=== PATIENT | male | born 2000 | race Caucasian/White ===

== ENCOUNTER 2020-05-19 22:58 | Emergency (ER) | payer OTHER, SELFPAY ==
[2020-05-19 23:07] VITALS: BP 129/71; PULSE 118; RESP 16; TEMP 38.4; O2SAT 96; BMI 29.2
[2020-05-19 23:42] LABS: Rapid Strep A Test Positive (Negative)
--- NOTE | 2020-05-19 23:55 | ED_ITS ---
HPI - General Adult General: Chief complaint: General Medical Stated complaint: fever, sore throat Time Seen by Provider: 05/19/20 23:21 History of Present Illness: HPI narrative: Healthy 19-year-old male presents with a couple of days of fever, sore throat, headache, and nausea. No rashes. No cough. No shortness of breath. No known exposure to the novel coronavirus. Onset (ago): day(s) Location: neck Radiation: non-radiation Severity: moderate Quality: stabbing and aching Pain Consistency: constant Relieving factors: none Exacerbating factors: other (Swallowing) Associated symptoms: Reports fevers/chills and nausea; Deny chest pain, dyspnea, rash, short of breath or vomiting Review of Systems Const: Reports: fever(s) and body aches Eyes: Denies: change in vision ENMT: Reports: throat pain and odynophagia; Denies: hoarseness or swelling of lips/tongue Card: Denies: chest pain Resp: Denies: dyspnea or productive cough GI: Reports: nausea; Denies: vomiting Skin/Breast: Denies: rash PFSH ED PFSH: Social History Smoking and tobacco status: never smoked Physical Exam Const: GENERAL APPEARANCE: well developed ORIENTATION/CONSCIOUSNESS: Yes oriented to person, Yes oriented to place and Yes oriented to time HENMT: COMMON NORMALS: external ears normal and Normal external nose present FACE & SINUS: normal facial exam NOSE: Normal external nose present and No nasal discharge present EXTERNAL EAR: Yes external ears normal MOUTH: tongue normal THROAT: abnormal tonsil bilateral erythema, exudates and hypertrophy Eye: COMMON NORMALS: Equal, round and reactive pupils present, EOMs intact bilaterally and conjunctivae normal EYELID: eyelids normal CONJUNCTIVA: Yes conjunctivae normal PUPIL: Yes Equal, round and reactive pupils present Neck/C-Spine: COMMON NORMALS: full ROM GENERAL: No tracheal deviation CERVICAL SPINE: Yes normal cervical lordosis and No Cervical spine tenderness Chest: COMMONS NORMALS: normal inspection of the chest CHEST: No tenderness Resp: COMMON NORMALS: clear to auscultation bilaterally EFFORT & INSPECTION: No tachypneic, No respiratory distress, No retractions, No uses accessory muscles and No tracheal deviation AUSCULTATION: clear to auscultation bilaterally, no rhonchi, no wheezes and lung sounds not diminished Cardio: COMMON NORMALS: regular rate and regular rhythm RATE: regular rate RHYTHM: regular rhythm HEART SOUNDS: no murmurs PERIPHERAL PULSES: radial pulses present GI: PALPATION: No Rigid due to palpation Neuro: SENSORIUM/ORIENTATION: Yes oriented to person, Yes oriented to place and Yes oriented to time Psych: COMMON NORMALS: mental status grossly normal Skin: COMMON NORMALS: no rashes or lesions noted GENERAL SKIN EXAM: no rashes or lesions noted Course Vital Signs: Vital signs: Vital Signs Temperature 101.1 F H 05/19/20 23:07 Pulse Rate 118 H 05/19/20 23:07 Respiratory Rate 16 05/19/20 23:07 Blood Pressure 129/71 05/19/20 23:07 Pulse Oximetry 96 05/19/20 23:07 [facility] - General Adult Lab Data: Labs: Lab Results 05/19/20 Range/Units 23:23 Group A Strep Rapi d Positive H (Negative) Discharge Plan Discharge Patient Disposition: Home, Self-Care Clinical Impression: Streptococcal sore throat Condition: Stable Prescriptions: New amoxicillin 875 mg tablet 875 mg PO Q12H 10 Days Qty: 20 RF: 0 Discharge Orders: Discharge Order (Routine); Ordered 05/19/20 Ordered By: Min Kimbrough Discharge Diet: Advance as tolerated Discharge Activity: Increase activity as tolerated Patient Instructions: Strep Throat (ED) Coding Level of Care Code ED Personal Care Aide for Abdiel Fwd Exam Comprehensive
[2020-05-20] MEDS: amoxicillin 500 mg Capsule PO (00:07)
[2020-05-20] MEDS: ketorolac 10 mg Tablet PO (00:08)
== END 2020-05-20 00:21 | disposition home or self-care (01) ==
PROVIDERS: Emergency Provider Emergency Medicine
DX: J02.0 Streptococcal pharyngitis (principal)
CPT/HCPCS: 12345; 87880; 99282; 99283